=== PATIENT | female | born 1980 | race Caucasian/White ===

== ENCOUNTER 2018-08-20 17:17 | Emergency (ER) | payer SELFPAY ==
[~2018-08-20] VITALS: Ht 154.9 cm; Wt 86.9 kg
[2018-08-20 17:30] VITALS: BP 107/70
--- NOTE | 2018-08-20 18:00 | NUR ---
Note sinan in EDM - 08/20/18 at 1826 by FELA BIB SELF C/O SEVERE 11/26 BACK AND LEFT SHOULDER PAIN S/P FALL X 2 DAYS AGO. P+ROM, -EDEMA, CAP REFILL <3 SECS.
--- NOTE | 2018-08-20 18:05 | NUR ---
BIB SELF C/O 8/10 LOWER BACK AND LEFT SHOULDER PAIN S/P FALL. +ROM TO LT UPPER EXTREMITY. -EDEMA, CAP REFILL <3 SECS. VSS. SIDERAIL UP X1 FOR SAFETY.
[2018-08-20] MEDS ORDERED: KETOROLAC 30 MG/ML VIAL IM ONE (18:10)
[2018-08-20 19:05] VITALS: BP 102/60
== END 2018-08-20 19:06 | disposition home or self-care (01) ==
LOC: MED 17:17
DX: S30.0XXA Contusion of lower back and pelvis, initial encounter (principal); W18.39XA Other fall on same level, initial encounter; Y93.89 Activity, other specified; Y92.89 Other specified places as the place of occurrence of the external cause; Y99.8 Other external cause status
CPT/HCPCS: 72100; 81025; 96372; 99283; J1885

== ENCOUNTER 2018-10-07 02:04 | Emergency (ER) | payer SELFPAY ==
[~2018-10-07] VITALS: Ht 154.9 cm; Wt 87.5 kg
[2018-10-07 02:05] VITALS: BP 112/63
--- NOTE | 2018-10-07 02:20 | NUR ---
PT AMBULATED TO BED #9
--- NOTE | 2018-10-07 03:02 | NUR ---
Dr. Marlow examining patient.
[2018-10-07] MEDS ORDERED: KETOROLAC 30 MG/ML VIAL IM ONE (03:15)
--- NOTE | 2018-10-07 04:01 | NUR ---
Patient discharged with v/s stable. Written and verbal after care instructions given and explained. Patient alert, oriented and verbalized understanding of instructions. Ambulatory with steady gait. All questions addressed prior to discharge. ID band removed. Patient advised to follow up with PMD. Rx of NAPROSYN WAS given. Patient educated on indication of medication including possible reaction and side effects. Opportunity to ask questions provided and answered. PT PAIN HAD DECREASED TO A LEVEL 3/10 PRIOR TO D/C
[2018-10-07 04:02] VITALS: BP 112/63
== END 2018-10-07 04:01 | disposition home or self-care (01) ==
LOC: MED 02:04
DX: R07.89 Other chest pain (principal); M54.9 Dorsalgia, unspecified; V89.2XXA Person injured in unspecified motor-vehicle accident, traffic, initial encounter; Y93.89 Activity, other specified; Y92.89 Other specified places as the place of occurrence of the external cause; Y99.8 Other external cause status
CPT/HCPCS: 71045; 96372; 99283; J1885

== ENCOUNTER 2020-07-10 02:00 | Emergency (ER) | payer SELFPAY ==
[~2020-07-10] VITALS: Ht 154.9 cm; Wt 57.2 kg
[2020-07-10 02:02] VITALS: BP 106/67
--- NOTE | 2020-07-10 02:02 | NUR ---
to bed ambulatory
--- NOTE | 2020-07-10 02:10 | NUR ---
to bed 7 from triage with c/o abdominal pain which started last evening after eating dinner. respirations regular and unlabored. skin warm and dry. ua dipped, results to chart
[2020-07-10] MEDS ORDERED: MORPHINE SULFATE 4 MG/ML SYR IVP ONE (02:15)
[2020-07-10] MEDS ORDERED: ONDANSETRON 4 MG/2 ML VIAL IVP ONE (02:15)
[2020-07-10] MEDS ORDERED: NACL 0.9% 1,000 ML IV ONE (02:15)
--- NOTE | 2020-07-10 02:22 | NUR ---
lab at bedside
[2020-07-10 02:29] LABS: BASOPHILS % (AUTO) 0.4 % (0.0-2.0); EOSINOPHILS # (AUTO) 0.1 K/uL (0-0.4); EOSINOPHILS % (AUTO) 1.2 % (0.0-4.0); HEMATOCRIT 37.6 % (36-48); HEMOGLOBIN 12.6 g/dL (12.0-16.0); LYMPHOCYTES # (AUTO) 2.6 K/uL (2.5-16.5); LYMPHOCYTES % (AUTO) 23.3 % (20.5-51.1); MEAN CORPUSCULAR HEMOGLOBIN 28 pg (27-31); MEAN CORPUSCULAR HGB CONC 33 g/dL (33-37); MEAN CORPUSCULAR VOLUME 84.3 fL (80-94); MONOCYTES # (AUTO) 0.8 K/uL (0.8-1.0); MONOCYTES % (AUTO) 7.4 % (1.7-9.3); NEUTROPHILS # (AUTO) 7.5 K/uL (1.8-7.7); NEUTROPHILS % (AUTO) 67.7 % (42.2-75.2); PLATELET COUNT (AUTO) 295 K/uL (140-450); RED BLOOD CELL COUNT(AUTO) 4.46 MIL/uL (4.20-5.40); RED CELL DISTRIBUTION WIDTH 14.1 % (11.6-13.7)
[2020-07-10 02:29] LABS: APPEARANCE,URINE SL CLOUDY (CLEAR); BILIRUBIN,URINE NEGATIVE (NEGATIVE); BLOOD, URINE NEGATIVE (NEGATIVE); COLOR,URINE YELLOW (YELLOW); LEUKOCYTE ESTERASE ,URINE NEGATIVE (NEGATIVE); NITRITE, URINE NEGATIVE (NEGATIVE); UGLUCOSE NEGATIVE (NEGATIVE)
[2020-07-10 02:45] LABS: ALBUMIN 3.6 g/dL (3.4-5.0); CARBON DIOXIDE 27.2 mmol/L (21-32); CREATININE 0.9 mg/dL (0.6-1.3); POTASSIUM 3.2 mmol/L (3.5-5.1); TOTAL BILIRUBIN 1.3 mg/dL (0.0-1.0)
--- NOTE | 2020-07-10 03:10 | NUR ---
US AT BEDSIDE
--- NOTE | 2020-07-10 03:46 | NUR ---
ALL RESULTS BACK AND NOTED BY ERMD AND FOR D/C
[2020-07-10 03:50] VITALS: BP 118/70
--- NOTE | 2020-07-10 03:50 | NUR ---
Patient discharged with v/s stable. Written and verbal after care instructions given and explained BY DR. SAAB. Patient verbalized understanding. Ambulatory with steady gait. All questions addressed prior to discharge. Advised to follow up with PMD.
== END 2020-07-10 03:50 | disposition home or self-care (01) ==
LOC: MED 02:00
DX: K80.20 Calculus of gallbladder without cholecystitis without obstruction (principal)
CPT/HCPCS: 36415; 76705; 80053; 81003; 81025; 82150; 83690; 85025; 96361; 96374; 96375; 99284; J2270; J2405; J7030

== ENCOUNTER 2022-12-21 13:23 | Emergency (ER) | payer MEDICAID ==
[~2022-12-21] VITALS: Ht 167.6 cm; Wt 79.8 kg
[2022-12-21 13:37] VITALS: BP 106/71; PULSE 69; RESP 17; TEMP 97.4; O2SAT 98
[2022-12-21] MEDS ORDERED: MECLIZINE 25 MG TAB PO ONE (13:50)
[2022-12-21] MEDS ORDERED: NACL 0.9% 1,000 ML IV ONE (14:35)
[2022-12-21 14:46] LABS: BASOPHILS % (AUTO) 0.4 % (0.0-2.0); EOSINOPHILS # (AUTO) 0.1 K/uL (0-0.4); EOSINOPHILS % (AUTO) 2.1 % (0.0-4.0); HEMATOCRIT 34.4 % (36-48); HEMOGLOBIN 11.7 g/dL (12.0-16.0); LYMPHOCYTES # (AUTO) 1.4 K/uL (2.5-16.5); LYMPHOCYTES % (AUTO) 20.4 % (20.5-51.1); MEAN CORPUSCULAR HEMOGLOBIN 28 pg (27-31); MEAN CORPUSCULAR HGB CONC 34 g/dL (33-37); MEAN CORPUSCULAR VOLUME 81.1 fL (80-94); MONOCYTES # (AUTO) 0.4 K/uL (0.8-1.0); NEUTROPHILS % (AUTO) 71.1 % (42.2-75.2); PLATELET COUNT (AUTO) 364 K/uL (140-450); RED BLOOD CELL COUNT(AUTO) 4.25 MIL/uL (4.20-5.40); RED CELL DISTRIBUTION WIDTH 15.9 % (11.6-13.7); WHITE BLOOD COUNT (AUTO) 7.1 K/uL (4.8-10.8)
[2022-12-21 15:12] LABS: ALANINE AMINOTRANSFERASE 29 U/L (12-78); ALBUMIN 3.3 g/dL (3.4-5.0); ALKALINE PHOSPHATASE 96 U/L (50-136); ANION GAP 9.7 (8-16); ASPARTATE AMINOTRANSFERASE 23 U/L (15-37); CALCIUM 8.3 mg/dL (8.5-10.1); CHLORIDE 105 mmol/L (98-107); CREATININE 0.6 mg/dL (0.6-1.3); GFR ARICAN-AMERICAN 140 mL/min (>90); GFR NON ARICAN-AMERICAN 115 mL/min (>90); GLUCOSE 118 mg/dL (74-106); MAGNESIUM 1.8 mg/dL (1.8-2.4); POTASSIUM 3.7 mmol/L (3.5-5.1); SODIUM SERUM 139 mmol/L (136-145); THYROID STIMULATING HORMONE 0.74 uIU/mL (0.34-3.74); TOTAL BILIRUBIN 0.8 mg/dL (0.0-1.0); TOTAL PROTEIN, SERUM 6.8 g/dL (6.4-8.2); UREA NITROGEN, BLOOD 11 mg/dL (7-18)
[2022-12-21] MEDS ORDERED: NAPR-54 PO (16:06)
== END 2022-12-21 16:27 | disposition home or self-care (01) ==
LOC: MED 13:23
DX: R55 Syncope and collapse (principal); H05 Disorders of orbit; Z79.899 Other long term (current) drug therapy
CPT/HCPCS: 36415; 71045; 80053; 83735; 84443; 84484; 85025; 93005; 96360; 99285; J7030; J8597